=== PATIENT | male | born 1970 | race Caucasian/White ===

== ENCOUNTER → 2016-11-05 | Outpatient (CLI) | payer OTHER ==
[~2016-11-05] VITALS: Ht 177.8 cm; Wt 89.1 kg
[~2016-11-05] MED LIST: ANDROGEL5 GM TP; FLEXERIL10 MG PO; GRALISE300 MG PO; MOBIC15 MG PO; NAPROXEN500 MG PO; OXYCONTIN20 MG PO; OXYMORPHONE HCL30 MG PO; PERCOCET 5/31 TABLET PO; RANITIDINE HCL150 MG PO
[2016-11-05 08:40] VITALS: BP 117/64
== END | disposition home or self-care (01) ==
LOC: IVINF 11-04 08:00
PROVIDERS: Family Medicine
DX: E27.40 Unspecified adrenocortical insufficiency (principal)
CPT/HCPCS: 80400; 82024 90; 82533 91; 96374; J0834

== ENCOUNTER 2016-12-25 18:06 | Emergency (ER) | payer OTHER ==
[~2016-12-25] VITALS: Ht 182.9 cm; Wt 93.3 kg
[2016-12-25] MEDS ORDERED: KEFLEX500 MG PO (22:12)
[2016-12-25] MEDS ORDERED: NAPROSYN500 MG PO (22:12)
[2016-12-25 22:36] VITALS: BP 102/62
== END 2016-12-25 22:37 | disposition home or self-care (01) ==
LOC: EME 18:06
DX: L03.116 Cellulitis of left lower limb (principal); I73.9 Peripheral vascular disease, unspecified; F17.200 Nicotine dependence, unspecified, uncomplicated
CPT/HCPCS: 73610; 99281; 99284

== ENCOUNTER 2017-01-15 13:32 | Emergency (ER) | payer OTHER ==
[~2017-01-15] VITALS: Ht 182.9 cm; Wt 93.2 kg
[~2017-01-15 13:32] MED LIST changes: +KEFLEX500 MG PO; +NAPROSYN500 MG PO
[2017-01-15 15:11] LABS: EOSINOPHIL (%) 0.9 % (0-5); EOSINOPHIL COUNT 0.1 K/uL (0-0.3); HEMATOCRIT 38.1 % (38.0-50.0); IMMATURE GRANULOCYTE (%) 0.2 % (0.0-0.7); INSTRUMENT ABS NEUTROPHIL CT 4.2 K/uL; LYMPHOCYTE COUNT 1.7 K/uL (1.0-2.8); MCH 29.1 PG (29.0-34.0); MCV 90.9 FL (86-99); MEAN PLAT.VOLUME 11.4 uM^3 (9.0-12.4); MONOCYTE (%) 6.5 % (3-12); MONOCYTE COUNT 0.4 K/uL (0-0.8); NEUTROPHIL (%) 65.9 % (45-76); NEUTROPHIL COUNT 4.2 K/uL (1.8-6.4); PLATELET COUNT 109 K/uL (156-360); RBC DIS.WIDTH-SD 46.6 % (39-53); RED BLOOD COUNT 4.19 M/uL (4.00-5.50); WHITE BLOOD COUNT 6.3 K/uL (4.1-10.2)
[2017-01-15 15:18] LABS: CHLORIDE 103 mEq/L (99-109); POTASSIUM 3.9 mEq/L (3.7-5.4); SODIUM 137 mEq/L (136-147)
[2017-01-15] MEDS ORDERED: OXYCODONE HCL15 MG PO (15:20)
[2017-01-15 15:21] LABS: GLUCOSE 130 mg/dL (70-99)
[2017-01-15] MEDS ORDERED: ANDROGEL150 GM TD (15:21)
[2017-01-15 15:22] LABS: ANION GAP 7 MEQ/L (2-14); TOTAL BILIRUBIN 0.5 mg/dL (0.0-1.0)
[2017-01-15 15:24] LABS: ALKALINE PHOSPHATASE 98 IU/L (3-129); GFR ESTIMATE (CALCULATED) > 59 mL/min/
[2017-01-15 15:25] LABS: UREA NITROGEN (BUN) 12 mg/dL (9-23)
[2017-01-15 15:26] LABS: DIRECT BILIRUBIN 0.3 mg/dL (0.0-0.3)
[2017-01-15 15:27] LABS: CARBON DIOXIDE (BICARBONATE) 31.5 MEQ/L (20-31)
[2017-01-15] MEDS ORDERED: BACTRIM,SEPT1 TABLET PO (17:27)
[2017-01-15 18:52] VITALS: BP 116/80
== END 2017-01-15 19:00 | disposition home or self-care (01) ==
LOC: EME 13:32 → EXP 13:32
PROVIDERS: Physician Assistant
DX: L03.116 Cellulitis of left lower limb (principal); M79.89 Other specified soft tissue disorders
CPT/HCPCS: 73701; 80048; 80076; 82803; 83605; 85025; 87040; 93971; 99281; 99285; J7120

== ENCOUNTER → 2017-01-18 | Outpatient (CLI) | payer OTHER ==
[~2017-01-18] MED LIST changes: +ANDROGEL150 GM TD; +BACTRIM,SEPT1 TABLET PO; +OXYCODONE HCL15 MG PO
== END | disposition home or self-care (01) ==
LOC: RAD 09:16
DX: Z02.71 Encounter for disability determination (principal)
CPT/HCPCS: 72100

== ENCOUNTER 2017-01-25 05:12 | Emergency (ER) | payer OTHER ==
[~2017-01-25] VITALS: Ht 180.3 cm; Wt 88.0 kg
[2017-01-25 06:16] LABS: HEMATOCRIT 38.9 % (38.0-50.0); MCH 29.7 PG (29.0-34.0); MCHC 32.9 G/DL (30.0-36.0); MCV 90.3 FL (86-99); MEAN PLAT.VOLUME 12.4 uM^3 (9.0-12.4); PLATELET COUNT 104 K/uL (156-360); RBC DIS.WIDTH-CV 14.5 % (11.8-14.6); RED BLOOD COUNT 4.31 M/uL (4.00-5.50); WHITE BLOOD COUNT 5.7 K/uL (4.1-10.2)
[2017-01-25 06:23] LABS: CHLORIDE 100 mEq/L (99-109); POTASSIUM 4.5 mEq/L (3.7-5.4); SODIUM 136 mEq/L (136-147)
[2017-01-25 06:25] LABS: GLUCOSE 69 mg/dL (70-99)
[2017-01-25 06:26] LABS: ANION GAP 12 MEQ/L (2-14)
[2017-01-25 06:29] LABS: GFR ESTIMATE (CALCULATED) > 59 mL/min/
[2017-01-25 06:30] LABS: UREA NITROGEN (BUN) 12 mg/dL (9-23)
[2017-01-25 06:53] LABS: URIC ACID 2.6 mg/dL (3.1-9.2)
[2017-01-25 07:26] LABS: EOSINOPHIL (%) 1.9 % (0-5); EOSINOPHIL COUNT 0.1 K/uL (0-0.3); HEMATOLOGY COMMENT 1 SMEAR COMPATIBLE; IMMATURE GRANULOCYTE (%) 0.4 % (0.0-0.7); INSTRUMENT ABS NEUTROPHIL CT 3.1 K/uL; LYMPHOCYTE COUNT 1.9 K/uL (1.0-2.8); MONOCYTE (%) 9.7 % (3-12); MONOCYTE COUNT 0.6 K/uL (0-0.8); NEUTROPHIL (%) 54.3 % (45-76); NEUTROPHIL COUNT 3.1 K/uL (1.8-6.4)
[2017-01-25 07:28] LABS: PLAT.SUFFICIENCY DECREASED
[2017-01-25 08:22] VITALS: BP 117/68
== END 2017-01-25 08:23 | disposition home or self-care (01) ==
LOC: EME 05:12
PROVIDERS: Physician Assistant
DX: L03.116 Cellulitis of left lower limb (principal); M79.672 Pain in left foot; F17.200 Nicotine dependence, unspecified, uncomplicated
CPT/HCPCS: 80048; 83605; 84550; 85025; 87040; 99281; 99284; J0696; J7050

== ENCOUNTER 2017-07-04 07:04 | Emergency (ER) | payer OTHER ==
[~2017-07-04] VITALS: Ht 182.9 cm; Wt 88.0 kg
[2017-07-04 07:34] LABS: EOSINOPHIL (%) 1.9 % (0-5); EOSINOPHIL COUNT 0.2 K/uL (0-0.3); HEMATOCRIT 40.7 % (38.0-50.0); IMMATURE GRANULOCYTE (%) 0.3 % (0.0-0.7); INSTRUMENT ABS NEUTROPHIL CT 3.6 K/uL; LYMPHOCYTE COUNT 3.3 K/uL (1.0-2.8); MCH 30.6 PG (29.0-34.0); MCHC 33.4 G/DL (30.0-36.0); MCV 91.7 FL (86-99); MEAN PLAT.VOLUME 11.6 uM^3 (9.0-12.4); MONOCYTE (%) 7.6 % (3-12); MONOCYTE COUNT 0.6 K/uL (0-0.8); NEUTROPHIL (%) 46.9 % (45-76); NEUTROPHIL COUNT 3.6 K/uL (1.8-6.4); PLATELET COUNT 140 K/uL (156-360); RBC DIS.WIDTH-CV 14.4 % (11.8-14.6); RBC DIS.WIDTH-SD 48.2 % (39-53); RED BLOOD COUNT 4.44 M/uL (4.00-5.50); WHITE BLOOD COUNT 7.8 K/uL (4.1-10.2)
[2017-07-04 08:08] LABS: ANION GAP 12 MEQ/L (2-14); CHLORIDE 104 MEQ/L (99-109); POTASSIUM 3.3 MEQ/L (3.7-5.4); SAMPLE HEMOLYSIS CHECK 0; SAMPLE ICTERIC CHECK 0; SAMPLE LIPEMIA CHECK 0; SODIUM 138 MEQ/L (136-147)
[2017-07-04 08:14] LABS: GFR ESTIMATE (CALCULATED) > 59 mL/min/; GLUCOSE 99 mg/dL (70-99); SERUM ETHYL ALCOHOL 146 mg/dL; UREA NITROGEN (BUN) 11 mg/dL (9-23)
[2017-07-04 10:41] VITALS: BP 101/69
== END 2017-07-04 10:01 | disposition home or self-care (01) ==
LOC: EME 07:04
PROVIDERS: Emergency Medicine
DX: T40.1X1A Poisoning by heroin, accidental (unintentional), initial encounter (principal); F11.10 Opioid abuse, uncomplicated; Z63.4 Disappearance and death of family member; F17.200 Nicotine dependence, unspecified, uncomplicated
CPT/HCPCS: 80048; 81003; 85025; 99281; 99284; G0480; J2310